=== PATIENT | male | born 1960 | race Caucasian/White ===

== ENCOUNTER 2017-09-30 01:45 | Emergency (ER) | payer OTHER, BC ==
[~2017-09-30] VITALS: Ht 170.2 cm; Wt 83.9 kg
[~2017-09-30 01:45] MED LIST: Norco 5-325 Ta1 EACH PO
[2017-09-30] MEDS ORDERED: METO50ER (02:21)
[2017-09-30] MEDS ORDERED: ERYT1OIN RIGHTEYE (04:27)
== END 2017-09-30 04:50 | disposition home or self-care (01) ==
LOC: ER 01:45
DX: S05.01XA Injury of conjunctiva and corneal abrasion without foreign body, right eye, initial encounter (principal); Z87.891 Personal history of nicotine dependence; X58.XXXA Exposure to other specified factors, initial encounter